=== PATIENT | female | born 1970 | race Two or more races ===

== ENCOUNTER → 2018-03-16 | Emergency (ER) | payer OTHER ==
[~2018-03-16] VITALS: Ht 160 cm; Wt 98.0 kg
[~2018-03-16] MED LIST: FLONASE ALLERG9.9 ML NASAL; PROMETH-CODEIN 65 ML PO; ZITHROMAX500 MG PO
== END | disposition home or self-care (01) ==
LOC: ER 23:14
DX: J01.00 Acute maxillary sinusitis, unspecified (principal); J06.9 Acute upper respiratory infection, unspecified

== ENCOUNTER 2018-10-03 13:40 | Emergency (ER) | payer OTHER ==
[~2018-10-03] VITALS: Ht 160 cm; Wt 97.5 kg
== END 2018-10-03 20:28 | disposition home or self-care (01) ==
LOC: ER 13:40
DX: S80.02XA Contusion of left knee, initial encounter (principal); S80.01XA Contusion of right knee, initial encounter; W18.39XA Other fall on same level, initial encounter; Y93.89 Activity, other specified; Y92.59 Other trade areas as the place of occurrence of the external cause; Y99.8 Other external cause status